=== PATIENT | female | born 2000 | race African-American/Black ===

== ENCOUNTER 2024-03-10 12:58 | Emergency (ER) | payer MEDICAID, OTHER ==
[~2024-03-10] VITALS: Ht 177.8 cm; Wt 70.0 kg
[2024-03-10 13:00] VITALS: TEMP 98.3; O2SAT 98
[2024-03-10 15:24] VITALS: BP 111/68; PULSE 71; RESP 14
[2024-03-10] MEDS: DEXAMETHASONE 4MG/ML 1ML VIAL IM ONE (15:24)
[2024-03-10] MEDS: KETOROLAC 30MG/ML VIAL IM ONE (15:24)
[2024-03-10] MEDS ORDERED: IBUP-2030 MT (16:14)
[2024-03-10] MEDS ORDERED: AMOX500T2 MT (16:14)
== END 2024-03-10 16:26 | disposition home or self-care (01) ==
LOC: ER 12:58
DX: J02.9 Acute pharyngitis, unspecified (principal)
CPT/HCPCS: 99284; 96372; J1100; J1885